=== PATIENT | female | born 1975 | race Caucasian/White ===

== ENCOUNTER 2020-02-17 16:03 | Outpatient (CLI) | payer OTHER, SELFPAY ==
--- NOTE | ~2020-02-17 | XR_ITS ---
XR foot LT min 3V DATE: 02/17/2020 16:28 INDICATION: Dorsal left foot pain. No known injury. TECHNIQUE: 4 views COMPARISON: None FINDINGS: No fracture or dislocation, periosteal reaction or bone destruction is detected. IMPRESSION: Negative Reviewed, dictated and finalized at location B. R BRAKEMAN IMPRESSION: Negative
== END 2020-02-17 16:04 | disposition home or self-care (01) ==
LOC: ANHIMG 16:07
PROVIDERS: PCP Family Medicine; Visit Provider Physician Assistant
DX: M79.672 Pain in left foot (principal)
CPT/HCPCS: 73630

== ENCOUNTER 2022-09-05 06:51 | Day surgery (SDC) | payer OTHER, SELFPAY ==
[2022-07-26 08:46] VITALS: BMI 35.7
[2022-08-22 12:17] VITALS: BMI 36.6
--- NOTE | 2022-09-02 16:41 | PM.HPGS ---
History of Present Illness History of Present Illness Consent: Risks, benefits, and alternatives have been discussed and questions answered. Patient agrees to proceed with procedure. Chief complaint: Neoplasm Screening Narrative: She Carrillo is a 46 year old female Referred for colon cancer screening. Review of Systems Review of Systems: All systems reviewed & are unremarkable except as noted in HPI and below PMFSH Past Medical History Medical History Upper respiratory infection Surgical History Surgical History History of delivery History of removal of cyst Family History Family History Sibling Family history of drug dependence Asthma Colon polyp Father , 2019 Family history of diabetes mellitus in first degree relative Family history of type 2 diabetes mellitus Mother Family history of malignant neoplasm of breast in first degree relative Grandparent Family history of type 2 diabetes mellitus Other Carcinoma of colon Diabetes mellitus Social History Social History Smoking status: Former smoker Tobacco type: cigarettes Second hand tobacco smoke exposure: No Additional smoking assessment comments: pt states social smoker in college Alcohol intake: current Drinks per week: 2 Alcohol use details: rarely Substance use: never Substance use type: does not use Lack of Transportation: No Lack of Food: Never True Current Housing: I Have Housing Concerned About Future Housing: No Difficulty Paying Gas/Electric Bills: No Difficulty Paying for Meds: No Currently Unemployed: No Education: Bachelor's Degree Difficulty w/ Childcare or Family Care: No Living arrangements: with family Occupation/Education: occupation Gender identity (if verbalized by the patient): Female Spiritual care concerns: No Meds Home Medications and Allergies Home Medications Medication Instructions Recorded Confirmed Type No Home Medications 08/22/22 09/05/22 History Allergies Allergy/AdvReac Type Severity Reaction Status Date / Time Sulfa (Sulfonamide Allergy Unknown Rash Verified 09/05/22 07:10 Antibiotics) Exam Resp: Auscultation: clear to auscultation bilaterally Cardio: Rate: regular rate Rhythm: regular rhythm GI: GI Palp: Yes Soft to palpation and No Tenderness to palpation present (GI) Assessment and Plan Assessment and plan (1) Colon cancer screening: Code(s): Z12.11 - Encounter for screening for malignant neoplasm of colon Status: Acute Assessment and Plan: Colonoscopy with possible biopsy or polypectomy or cautery or injection of substances.
--- NOTE | 2022-09-05 06:52 | P.PNAN_ITS ---
Anes - Initial Pre Proc Eval Procedure: Operation Date: 09/05/22 08:30 Proposed Procedures p Screening Colonoscopy - Pepe Abbott MD Date/Time: 09/05/22 06:52 Surgeon: Pepe Abbott MD Pre Op Diagnosis: Neoplasm Screening Patient Data Age: 46 Gender: F Height: 1.7 m Weight: 106 kg Allergies Allergy/AdvReac Type Severity Reaction Status Date / Time Sulfa (Sulfonamide Allergy Unknown Rash Verified 09/05/22 07:10 Antibiotics) Home Medications Medication Instructions Recorded Confirmed Type No Home Medications 08/22/22 09/05/22 History Patient hx anesthesia problems: none Family hx anesthesia problems: none Results Review: All pre-operative results and documents have been reviewed as part of the pre- operative evaluation. [facility] Past Medical History Medical History (Updated 09/02/22 @ 16:42 by Pepe Abbott MD) Upper respiratory infection Surgical History Surgical History History of delivery History of removal of cyst Family History Family History Sibling Family history of drug dependence Asthma Colon polyp Father , 2019 Family history of diabetes mellitus in first degree relative Family history of type 2 diabetes mellitus Mother Family history of malignant neoplasm of breast in first degree relative Grandparent Family history of type 2 diabetes mellitus Other Carcinoma of colon Diabetes mellitus Social History Social History Smoking status: Former smoker Tobacco type: cigarettes Second hand tobacco smoke exposure: No Additional smoking assessment comments: pt states social smoker in college Alcohol intake: current Drinks per week: 2 Alcohol use details: rarely Substance use: never Substance use type: does not use Lack of Transportation: No Lack of Food: Never True Current Housing: I Have Housing Concerned About Future Housing: No Difficulty Paying Gas/Electric Bills: No Difficulty Paying for Meds: No Currently Unemployed: No Education: Bachelor's Degree Difficulty w/ Childcare or Family Care: No Living arrangements: with family Occupation/Education: occupation Gender identity (if verbalized by the patient): Female Spiritual care concerns: No Anes - Eval Final PreProcedure Day of Procedure 09/05/22 06:52 Patient weight: obese Heart: regular rate and rhythm Lungs: clear to auscultation Airway: Mallampati scale class II Neurological: alert and oriented Last oral intake: >/= 8 hours ASA classification: II Emergent: no Anesthetic plan: proceed Anesthesia type and monitoring: general GIVS and standard monitoring Results Review: All pre-operative results and documents have been reviewed as part of the pre- operative evaluation. Informed Consent: The patient's anesthetic plan and its attendant risks and benefits were discussed with the patient/family/POA. Questions were solicited and answers provided to the satisfaction of the patient/family/POA.
[2022-09-05 07:22] VITALS: BP 126/88; PULSE 94; RESP 16; TEMP 36.8; O2SAT 99; BMI 36.5
[2022-09-05] MEDS: LACTATED RINGERS 1,000 ML 150 ML IV CONT (07:33)
[2022-09-05 08:28] VITALS: BP 112/60; PULSE 83; RESP 16; O2SAT 99
[2022-09-05 08:38] VITALS: BP 121/80; PULSE 70; RESP 16; O2SAT 100
[2022-09-05 08:48] VITALS: BP 117/78; PULSE 77; RESP 14; O2SAT 100
--- NOTE | 2022-09-05 12:04 | WPDANESPN ---
Anes - Prog Note Post-Op Date/Time: 09/05/22 12:04 Cardiovascular status: normal Respiratory status: normal Airway patency: baseline Mental status: baseline Post-Op hydration status: normal Vital Signs: Last Vital Signs Temp 36.8 C 09/05/22 07:22 Pulse 77 09/05/22 08:48 Resp 14 09/05/22 08:48 BP 117/78 09/05/22 08:48 Pulse Ox 100 09/05/22 08:48 O2 Del Method Room Air 09/05/22 08:48 Pain Score (VAS): 0 I/O: Intake & Output 09/04/22 09/05/22 09/05/22 23:59 07:59 15:59 Intake Total 750 Balance 750 Post-procedural complaints: none Patient Feedback: Patient satisfied with anesthetic care. Other Findings: Patient vital signs back to baseline. Patient denies nausea and vomiting. Patient's pain under control. Patient OK for discharge.
== END 2022-09-05 09:13 | disposition home or self-care (01) ==
PROVIDERS: PCP Family Medicine; Visit Provider Internal Medicine Gastroenterology
PROC: 0DJD8ZZ Inspection of Lower Intestinal Tract, Via Natural or Artificial Opening Endoscopic (ICD-10-PCS; CPT 45378; principal; 2022-09-05 08:30)
DX: Z12.11 Encounter for screening for malignant neoplasm of colon (principal)
CPT/HCPCS: 45378

== ENCOUNTER 2024-10-31 09:41 | Outpatient (CLI) | payer OTHER, SELFPAY ==
--- NOTE | ~2024-10-31 | MM_ITS ---
EXAMINATION: MM screening yuan BI w michelle HISTORY: Screening TECHNIQUE: Craniocaudal and mediolateral oblique 3-D tomosynthesis images were obtained and synthetic 2-D images were generated. CAD analysis was submitted and interpreted. COMPARISON: No prior mammogram is available for comparison at this institution. BREAST PARENCHYMAL COMPOSITION: There are scattered areas of fibroglandular density. FINDINGS: Focal asymmetry in the upper-outer quadrant of the left breast, posterior depth. No suspicious calcifications masses or architectural distortion. IMPRESSION: 1. Focal asymmetry in the upper-outer quadrant of the left breast, posterior depth. The study is incomplete. A diagnostic mammogram and a diagnostic ultrasound are recommended. BI-RADS 0: Incomplete-Need additional imaging evaluation. Reviewed, dictated and finalized at location Q. IMPRESSION: 1. Focal asymmetry in the upper-outer quadrant of the left breast, posterior de pth. The study is incomplete. A diagnostic mammogram and a diagnostic ultrasoun d are recommended. BI-RADS 0: Incomplete-Need additional imaging evaluation.
--- OUTSIDE RECORDS SUMMARY | 2024-10-31 10:14 | XMS_ITS | Clinical Summary ---
Author Organization [facility] Address [address] [place] [address] Care Team Providers Care Pm Technician Name Role Phone Christine Marshall MD Primary Care Provider + Source Comments [facility],non-owned Affiliates and Associated Physician Practices is amultiple site organization consisting of ambulatory clinics and hospital sitesin [place], [place], [place] and [place]. This disclosure is being madepursuant to the Care Everywhere program and may not contain all information available regarding this patient. Last updated 17.[facility] Allergies Active Allergy Reactions Criticality Noted Date Comments Sulfa Drugs 11/10/2015 Medications * Be aware that medications may not be up to date on this document. Alwaysverify current medications with the patient. fluticasone propionate (FLONASE) 50 MCG/ACT nasal sprayIndication s:Acute non-recurrent maxillary sinusitis [place] 1 [place] into each nostril 2 times daily 1 Bottle 0 11/10/2015 Active Family History Medical History Relation Name Comments Diabetes Father Cancer - Breast Mother Relation Name Status Comments Father Mother Social History Tobacco Use Types Packs/Day Years Used Date Smoking Tobacco: Never Comments Unknown Sex and Gender Information Value Date Recorded Sex Assigned at Not on file Legal Sex Female 9:23 AM CDT Gender Identity Not on file Sexual Orientation Not on file Last Filed Vital Signs Vital Sign Reading Time Taken Comments Blood Pressure 120/78 11/10/2015 11:28 AM CDT Pulse 88 11/10/2015 11:28 AM CDT Temperature 37 C (98.6 F) 11/10/2015 11:28 AM CDT Respiratory Rate 16 11/10/2015 11:28 AM CDT Oxygen Saturation 98% 11/10/2015 11:28 AM CDT Inhaled Oxygen Concentration - - Weight 97.5 kg (215 lb) 11/10/2015 11:28 AM CDT Height 175.3 cm (5' 9) 11/10/2015 11:28 AM CDT Body Mass Index 31.75 11/10/2015 11:28 AM CDT Plan of Treatment Health Maintenance Due Date Last Done Comments COLOGUARD (AGES 45-75) - COL ON CA SCREENING 1974 COLON MONITORING 1974 COLONOSCOPY - COLON CA SCREENING 1974 CT COLONOGRAPHY - COLON CA SCREENING 1974 Colorectal Cancer Screening 1974 FIT - COLON CA SCREENING 1974 FLEX SIG - COLON CA SCREENING 1974 LIPID TESTING 1974 MAMMOGRAM 1974 HIV SCREENING 1989 HEPATITIS C SCREENING 09/22/1992 DTAP/TDAP/TD VACCINES (1 - Tdap) 1993 HEPATITIS B VACCINE (1 of 3 - 19+ 3-dose series) 1993 DEPRESSION SCREENING 02/14/2024 PNEUMOCOCCAL VACCINE 50+ (1 of 1 - PCV) 2024 ZOSTER VACCINE (1 of 2) 2024 COVID-19 VACCINE (1 - 2023-2 5 season) 2024 INFLUENZA VACCINE (#1) 2024 HIB VACCINE Aged Out No longer eligi ble based on patient's age to complete this topic HPV VACCINE Aged Out No longer eligi ble based on patient's age to complete this topic MENINGOCOCCAL (Group B) VACC INE SHARED DECISION-MAKING Aged Out No longer eligibl e based on patient's age to complete this topic MENINGOCOCCAL GROUPS A/C/Y/W VACCINE Aged Out No longer eligible b ased on patient's age to complete this topic Insurance JOSE LUIS Care Teams Pm Technician Relationship Specialty Start Date End Date Christine Marshall MD [address] [place] [address] PCP - General Family Medicine 11/10/15
== END 2024-10-31 09:42 | disposition home or self-care (01) ==
PROVIDERS: PCP Family Medicine; Visit Provider Nurse Practitioner Family
DX: Z12.31 Encounter for screening mammogram for malignant neoplasm of breast (principal)
CPT/HCPCS: 77063; 77067

== ENCOUNTER 2024-12-20 08:42 | Outpatient (CLI) | payer OTHER, SELFPAY ==
--- NOTE | ~2024-12-20 | XR_ITS ---
XR lumbar spine 2-3V Indication: M54.50 - Low back pain, unspecified Comparison: None Findings: Minimal grade 1 anterolisthesis of L3 on L4 and L4 on L5. Severe loss of disc at L5-S1. Soft tissues unremarkable Impression: No acute abnormality. Reviewed, dictated and finalized at location P. RNET MARKETING SPECIALIST Impression: No acute abnormality.
--- NOTE | ~2024-12-20 | XR_ITS ---
EXAMINATION: XR hip BI 2V w AP pelvis, 12/20/2024 9:00 BIT TRIPOLER HISTORY: M54.50 - Low back pain, unspecified COMPARISON: No comparisons available. Findings: No acute fracture or malalignment. No significant degenerative changes. Soft tissues unremarkable. Impression: No acute fracture or malalignment. Reviewed, dictated and finalized at location P. TRIPOLER Impression: No acute fracture or malalignment.
== END 2024-12-20 08:43 | disposition home or self-care (01) ==
PROVIDERS: PCP Family Medicine
DX: M43.16 Spondylolisthesis, lumbar region (principal); R29.890 Loss of height; M25.551 Pain in right hip; M25.552 Pain in left hip
CPT/HCPCS: 72100; 73521

== ENCOUNTER 2025-01-28 08:32 | Outpatient (CLI) | payer OTHER, SELFPAY ==
--- NOTE | ~2025-01-28 | MR_ITS ---
EXAM/PROCEDURE: MR lumbar spine wo con HISTORY: M54.50 - Low back pain, unspecified COMPARISON: None available. TECHNIQUE: Lumbar spine MRI without contrast FINDINGS: Degenerative changes throughout the lumbar spine involving disc spaces and posterior elements with no acute or aggressive bony or soft tissue process seen. The conus tapers normally at the level of L1. Level specific findings as follows: T12-L1: Mild degenerative change L1-2: Mild degenerative change L2-3: Mild degenerative change L3-4: Moderately severe thickening of the ligamentum flavum, with mild facet hyperostosis and mild posterior disc bulging contributing to mild to moderate bilateral neural foraminal narrowing right worse than left. Trace amount of synovial fluid also present in the right facet. No discrete disc protrusion or spinal canal stenosis. L4-5: Similar but slightly more advanced changes as at L3-4 with mild to moderate bilateral neural foraminal narrowing. No spinal canal stenosis or discrete disc protrusion. Trace amounts of fluid in the facets bilaterally right greater than left. Borderline stenosis developing in the left lateral recess. L5-S1: No spinal canal stenosis or discrete disc protrusion. Mild to moderately severe bilateral neural foraminal narrowing. IMPRESSION: Multilevel degenerative changes involving posterior elements and disc spaces as detailed above. Reviewed, dictated and finalized at location A. N SPECIALIST
== END 2025-01-28 08:33 | disposition home or self-care (01) ==
LOC: MICIMG 08:32
PROVIDERS: PCP Family Medicine
DX: M79.606 Pain in leg, unspecified (principal); R93.7 Abnormal findings on diagnostic imaging of other parts of musculoskeletal system; M51.369 Other intervertebral disc degeneration, lumbar region without mention of lumbar back pain or lower extremity pain
CPT/HCPCS: 72148

== ENCOUNTER 2025-01-29 16:07 | Outpatient (CLI) | payer OTHER, SELFPAY ==
--- NOTE | ~2025-01-29 | XR_ITS ---
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 Technique: 2 views obtained. Findings: The lungs are clear, no effusion. No pneumothorax. Heart is normal size. Mediastinal and hilar contours are within normal limits. Bony thorax no acute abnormality. Impression: No acute cardiopulmonary abnormality. Reviewed, dictated and finalized at location P. DRY PRESS MIXER OPERATOR Impression: No acute cardiopulmonary abnormality.
[2025-01-29 16:58] LABS: Influenza A QL RT-PCR Positive (Negative); Influenza B QL RT-PCR Negative (Negative); RSV RNA, RT-PCR Negative (Negative); SARS-CoV-2 RNA PCR Negative (Negative)
--- OUTSIDE RECORDS SUMMARY | 2025-01-29 18:12 | XMS_ITS | Clinical Summary ---
Author Organization [facility] Address [address] [place] [address] Care Team Providers Care Switch Adjuster Name Role Phone Unavailable Primary Care Provider Unavailabl e Medications No known medications Social History Tobacco Use Types Packs/Day Years Used Date Smoking Tobacco: Never Assessed Comments Unknown Sex and Gender Information Value Date Recorded Sex Assigned at Not on file Legal Sex Female 2:43 PM EST Gender Identity Not on file Sexual Orientation Not on file Plan of Treatment Not on file Medical Devices Not on file
--- OUTSIDE RECORDS SUMMARY | 2025-01-29 18:12 | XMS_ITS | Clinical Summary ---
Author Organization [email or web address] Address [address] [place] [address] Care Team Providers Care Grocery Cashier Name Role Phone Christine Marshall MD Primary Care Provider + Source Comments [facility],non-owned Affiliates and Associated Physician Practices is amultiple site organization consisting of ambulatory clinics and hospital sitesin [place], [place], [place] and [place]. This disclosure is being madepursuant to the Care Everywhere program and may not contain all information available regarding this patient. Last updated 17.[email or web address] Allergies Active Allergy Reactions Criticality Noted Date Comments Sulfa Drugs 11/10/2015 Medications * Be aware that medications may not be up to date on this document. Alwaysverify current medications with the patient. fluticasone propionate (FLONASE) 50 MCG/ACT nasal sprayIndication s:Acute non-recurrent maxillary sinusitis [place] 1 [place] into each nostril 2 times daily 1 [...] of 2) 2024 COVID-19 VACCINE (1 - 2024-2 6 season) 2024 INFLUENZA VACCINE (#1) 2024 HIB [...] this topic Insurance JOSE LUIS Care Teams Grocery Cashier Relationship Specialty Start Date End Date Christine Marshall MD [address] [place] [address] PCP - General Family Medicine 11/10/15
== END 2025-01-29 16:08 | disposition home or self-care (01) ==
PROVIDERS: PCP Family Medicine; Visit Provider Physician Assistant
DX: J02.9 Acute pharyngitis, unspecified (principal); R05.9 Cough, unspecified; Z20.822 Contact with and (suspected) exposure to COVID-19
CPT/HCPCS: 71046; 87637